=== PATIENT | male | born 1945 | race Caucasian/White ===

== ENCOUNTER 2017-02-06 07:23 | Inpatient (IN) | payer MEDICARE, OTHER ==
[~2017-02-06] VITALS: Ht 188 cm; Wt 100.2 kg
--- NOTE | ~2017-02-06 | DS ---
Discharge Summary [facility] [address] [place]. [address] NAME: VAMSHI CHAVEZ : 47 STATUS : DIS IN PAT#: [id number] AGE: 71 ADM/REG DATE : 02/06/17 MR#: [id number] REPORT SERV DATE: 02/08/17 DICTATED BY: JR. ESQUEDA WILLIAM JOHN DATE: 02/07/17 REPORT STATUS : Draft TRANSCRIBED BY: MODL DATE: 02/07/17 ADMISSION DATE: 02/06/2017 DISCHARGE DATE: 02/07/2017 DISCHARGE DIAGNOSES: 1. Coronary artery disease status post drug-eluting stent of the mid left anterior descending with residual 34% stenosis and a diagonal 50% stenosis lesion. 2. Hypothyroidism, which is a new diagnosis. 3. Hypertension. 4. Gastroesophageal reflux disease. OPERATIONS/PROCEDURES/TREATMENTS: 1. PA and lateral chest x-ray done 02/03/2017 which showed no acute cardiopulmonary process. 2. CT angiogram of the chest done 02/03/2017 which showed motion artifact without CTA evidence of pulmonary embolism. No active pulmonary disease. There is a moderate-to- large hiatal hernia with several small cysts in the liver. 3. Nuclear stress test done 02/04/2017, which is Dwayne stage 2, was achieved with 87% predicted maximal heart rate at 7 METs. Chest pressure was described. There was no EKG evidence of ischemia. Imaging demonstrated inferior apical ischemia. Ejection fraction was 53%. Intermediate risk stress test. 4. Cardiac catheterization done 02/06/[address] Esparza which showed mild luminal irregularities in the left main. The LAD had proximal vessel with tubular smooth 30%- 40% narrowing before the diagonal takeoff. The diagonal had a tubular 50% ostial/proximal disease. Mid LAD had a tubular 40% narrowing just after the diagonal takeoff. The mid LAD had diffuse disease up to 90% narrowing. Distal LAD had mild luminal irregularities. The mid LAD lesion was stented with a drug-eluting stent. Left circumflex had a single obtuse marginal, mild irregularity. Right coronary was dominant with mild luminal irregularities. Ramus was small with mild luminal irregularities. DISCHARGE MEDICATIONS: 1. Vitamin C 500 mg daily. 2. Aspirin 81 mg daily. 3. Lipitor 40 mg daily. 4. Plavix 75 mg daily. 5. Vitamin D 1000 units daily. 6. Hydrochlorothiazide 12.5 mg daily. 7. Synthroid 25 mcg daily. 8. Omeprazole 20 mg twice a day. 9. Terazosin 5 mg daily. 10.Cialis 5 mg daily as needed. HOSPITAL COURSE: The patient was a 71-year-old male, who presented to [facility] on 02/03/2017 with complaint of chest pressure. The patient was at [facility] on the elliptical around 3:30, he had sudden onset of chest tightness with nausea, but no vomiting. He had Discharge Summary [facility] [address] [place]. [address] NAME: VAMSHI CHAVEZ : 47 STATUS : DIS IN PAT#: [id number] AGE: 71 ADM/REG DATE : 02/06/17 MR#: [id number] REPORT SERV DATE: 02/08/17 DICTATED BY: JR. ESQUEDA WILLIAM JOHN DATE: 02/07/17 REPORT STATUS : Draft TRANSCRIBED BY: CHRISTOPHER DATE: 02/07/17 increasing shortness of breath which has been progressively worsening over the last few weeks. He had just gotten back from a trip to the [facility] and is active on a daily basis. On initial exam, his blood pressure is 171/96, temperature 98.1, heart rate 62, respiratory rate of 18. Exam was overall unremarkable. Laboratory was unremarkable except the troponin of 0.07. The patient was admitted to the hospital for chest pressure. He had serial cardiac enzymes followed by stress test, which is detailed above. He was seen in consultation by Dr. Mitch Esparza and was transferred to [facility] for cardiac catheterization. The patient was found to have lesions as above and had a drug-eluting stent in the mid LAD. Recommendation is one year of double antiplatelet agents with aspirin and Plavix. Regarding hypothyroidism, the patient was found to have an elevated thyroid-stimulating hormone of 12.1. He was placed on Synthroid 25 mcg. Recommendation is for followup TSH in four to six weeks with followup with Dr. Longoria. FOLLOWUP: The patient will be discharged today 02/07/2017 with a followup with Dr. Esparza in three to four weeks [address] Dr[address] Longoria in four to six weeks for TSH. DISCHARGE DIET: Cardiac diet. ACTIVITY: As tolerated. For discharge exam and laboratory, please see daily progress note. This discharge took greater than 30 minutes for patient encounter, coordination of care, and documentation. WJF/MODL Mitch Esqueda Jr, MD / [id number] CC: Morris Jaramillo M.D.
[~2017-02-06 07:23] MED LIST: ADVIL PO; AFRIN15 NAS; CIALIS5 MG PO; HYDROCHLOROT12.5 MG PO; HYT5 PO; PRILO PO; VITAMIN D31000 UNIT PO; VITC500 PO
[2017-02-07] MEDS ORDERED: ASAB PO (10:11)
[2017-02-07] MEDS ORDERED: SYN.025B PO (10:11)
[2017-02-07] MEDS ORDERED: LIPITOR40 PO (10:12)
[2017-02-07] MEDS ORDERED: PLAVIX PO (10:12)
[2017-02-07] MEDS ORDERED: NTG150 SL (10:13)
== END 2017-02-07 11:10 | disposition home or self-care (01) | DRG 247 ==
LOC: CORLMH 07:23 → SSU1 08:35 → CORLMH 13:30 → SSU1 14:00
PROC: 027034Z Dilation of Coronary Artery, One Artery with Drug-eluting Intraluminal Device, Percutaneous Approach (ICD-10-PCS; principal; 2017-02-06)
PROC: 4A023N7 Measurement of Cardiac Sampling and Pressure, Left Heart, Percutaneous Approach (ICD-10-PCS; 2017-02-06)
PROC: B2111ZZ Fluoroscopy of Multiple Coronary Arteries using Low Osmolar Contrast (ICD-10-PCS; 2017-02-06)
DX: I25.110 Atherosclerotic heart disease of native coronary artery with unstable angina pectoris (principal); I10 Essential (primary) hypertension; K21.9 Gastro-esophageal reflux disease without esophagitis; N52.9 Male erectile dysfunction, unspecified; E03.9 Hypothyroidism, unspecified; Z79.899 Other long term (current) drug therapy
CPT/HCPCS: 93005; 93458; 99152; 99153; A9270-GY; C1713; C1725; C1769; C1874; C1887; C1894; C9600; J0583; J2250; J3010; Q9967